=== PATIENT | male | born 1980 | race African-American/Black ===

== ENCOUNTER 2018-11-27 23:24 | Emergency (ER) | payer MEDICAID ==
[~2018-11-27] VITALS: Ht 170.2 cm; Wt 70.0 kg
[2018-11-27 23:44] VITALS: BP 114/76
== END 2018-11-28 03:52 | disposition left against medical advice (07) ==
LOC: ER 23:24
DX: Z53.21 Procedure and treatment not carried out due to patient leaving prior to being seen by health care provider (principal)